=== PATIENT | female | born 1985 | race African-American/Black ===

== ENCOUNTER 2018-06-23 14:31 | Emergency (ER) | payer OTHER ==
[2018-06-23 15:06] VITALS: BMI 35.5
--- NOTE | 2018-06-23 15:33 | PDOC ---
History of Present Illness - General Chief Complaint: Pain Stated Complaint: Shortness of Breath - History of Present Illness Initial Comments: Lacei Stock is a 32yo woman with a history of complex migraine and recent gastric sleeve who presents with an episode of syncope this afternoon and now tachycardia and tachypnea. Ms Stock states that since her gastric surgery, she has been vomiting nearly every day after trying to eat. Today, she was vomiting when she states that she passed out. She fell backwards and hit the back of her head. When she woke, she says that she had chest pain and felt short of breath. She has never had anything similar happen in the past. She has no history of heart disease, and there is no family history of heart problems at a young age. Per her mother, present at bedside, Ms Stock has been spending the past month laying on the couch for the majority of the day, though her mother does make her get up to walk once per day. Currently, she is complaining of diffuse chest/sternal, abdominal, head, and BLE pain along with SOB and racing heart. She reports a fever to 101F a few days ago along with a cough productive of white sputum. Past History - Past Medical History Allergies/Adverse Reactions: Allergies Allergy/AdvReac Type Severity Reaction Status Date / Time No Known Allergies Allergy Verified 06/23/18 15:03 Home Medications: Ambulatory Orders NK [No Known Home Medication] 06/23/18 COPD: No - Suicide/Smoking/Psychosocial Hx Smoking History: Never smoked Have you smoked in the past 12 months: No Information on smoking cessation initiated: No Hx Alcohol Use: No Drug/Substance Use Hx: No Review of Systems - Review of Systems Comments:: General: No fevers, no chills, no malaise HEENT: No changes in vision, no changes in hearing, no congestion, no sore throat. +hit head CV: +chest pain, +racing heart, no LE edema Pulm: +SOB, no cough, no wheezing GI: +frequent nausea/vomiting. +recent gastric sleeve. No change in bowel habits , no melena : No frequency, no urgency, no dysuria Musc: No back pain, no joint swelling, no recent injury Skin: No rash, no lesions, no erythema Endo: No excessive thirst, no heat/cold intolerance Heme: No unusual bruising or bleeding, no swollen glands Neuro: No syncope, no numbness/tingling, no focal weakness Vasc: No claudication Psych: No recent change in mood, no SI or HI *Physical Exam - Vital Signs Last Vital Signs Temp Pulse Resp BP Pulse Ox 98.1 F 89 26 H 152/89 97 06/23/18 15:03 06/23/18 15:03 06/23/18 15:03 06/23/18 15:03 06/23/18 15:03 - Physical Exam Comments: General: Moderate distress HEENT: PERRL, EOMI, dry lips. Normal neck ROM. Posterior head TTP Cards: Tachycardic, regular. Sternal TTP Pulm: Tachypnic. Clear bilaterally Abd: Soft, diffusely TTP Ext: Atraumatic. No LE edema. ROM intact. No calf tenderness Vasc: Extremities WWP Skin: Pale, no rashes or lesions Neuro: A&Ox3, CN grossly intact, normal speech, motor/sensory grossly intact and symmetric Psych: Anxious Moderate Sedation - Procedure Monitoring Vital Signs: Procedure Monitoring Vital Signs Temperature 98.1 F 06/23/18 15:03 Pulse Rate 89 06/23/18 15:03 Respiratory Rate 26 H 06/23/18 15:03 Blood Pressure 152/89 06/23/18 15:03 O2 Sat by Pulse Oximetry (%) 97 06/23/18 15:03 ED Treatment Course - LABORATORY CBC & Chemistry Diagram: 06/23/18 16:00 06/23/18 16:00 Medical Decision Making - Medical Decision Making 06/23/18 15:44 Lacie Sotck is a 32yo woman with a PMH of complex migraine, recent gastric sleeve 1mo ago w/ frequent nausea and vomiting who presents with an episode of syncope at home today, now with tachycardia to 150 and tachypnea in the 30's. - Ddx could be PE, anemia, hyperthyroid, dehydration, sepsis (though no known fever), sympathomimetic use, electrolyte abnormalities, pain, anxiety - CBC, CMP, mag, phos, trop, TSH, EKG, CXR, urine preg, lactate, blood cultures - CT head given fall - Pt's mother reports that she has been getting up only once per day for the past month. Concerning for PE. CTA to be completed after labs result - 1L LR, famotidine ordered 06/23/18 18:37 - Labs reviewed. Trop 0.8, lactate 5.7. - CT head completed. No bleed - 4th L of LR ordered - Now hypotensive to 80/50 - Bedside echo completed by Dr Calvert. Shows significant right heart strain - Spoke to telephone clerk guard driver, will follow while in hospital 06/23/18 19:03 - Spoke to Dr Rudd. Will be accepted to Dr Stephens's service - Dr Calvert spoke to Dr Guzman regarding ICU admission and possible thrombectomy. Will call with update after completing CTA - Repeat chemistry and lactate sent. Will take to CT when labs completed if Cr is decreased. Pt signed out to Dr Wadsworth for remainder of hospital care. Discussed with Dr Calvert. Camila Tuttle PGY1 *DC/Admit/Observation/Transfer Diagnosis at time of Disposition: Acute pulmonary embolism, Elevated troponin I level - Referrals - Patient Instructions - Post Discharge Activity
[2018-06-23] MEDS ORDERED: FAMOTIDINE 20 MG/50 ML IVPB 20 MG/50 ML MG IVPB ONE ×2 (15:46→16:20)
[2018-06-23] MEDS ORDERED: LACTATED RINGERS SOLUTION 1000 ML INFUS.BAG IV ONE ×2 (15:47→17:39)
[2018-06-23 16:30] LABS: VENOUS PC02 45.9 mmHg (41-51); VENOUS PH 7.32 (7.31-7.41); VENOUS PO2 18.5 mmHg (30-40)
[2018-06-23 16:34] LABS: BASO % 0.5 % (0-2.0); EOS % 0.8 % (0-4.5); HEMATOCRIT 45.2 % (32.4-45.2); HEMOGLOBIN 15.4 GM/dL (10.7-15.3); LYMPH % 27.6 % (8-40); MCH 31.1 pg (25.7-33.7); MCHC 34.1 g/dl (32.0-36.0); MEAN CELL VOLUME 91.3 fl (80-96); MEAN PLT VOLUME 9.6 fl (7.5-11.1); MONO % 8.7 % (3.8-10.2); NEUT % 62.4 % (42.8-82.8); PLATELET COUNT 144 K/MM3 (134-434); RBC 4.95 M/mm3 (3.60-5.2); RDW 14.5 % (11.6-15.6); WHITE BLOOD COUNT 9.3 K/mm3 (4.0-10.0)
[2018-06-23 16:49] LABS: INR 1.44 (0.83-1.09)
[2018-06-23 16:51] LABS: ACTIVATED PTT 31.6 SECONDS (25.2-36.5)
[2018-06-23] MEDS ORDERED: ACETAMINOPHEN 1000 MG/100 ML VIAL (NON FORMULARY) IVPB ONE (17:18)
--- NOTE | 2018-06-23 17:19 | PDOC ---
Attending Attestation - Resident Resident Name: Camila Tuttle - ED Attending Attestation I have performed the following: I have examined & evaluated the patient, The case was reviewed & discussed with the resident, I agree w/resident's findings & plan, Exceptions are as noted - HPI HPI: 06/23/18 17:15 32-year-old female with history of morbid obesity, status post gastric sleeve 1 month prior presents with severe substernal chest discomfort, pleuritic in nature, associated with nausea and multiple episodes of nonbloody nonbilious vomiting for the past several weeks. Patient also reports of a posterior occipital headache which developed after she fell and struck her head. Patient denies neck or abdominal pain. Patient also reports fever of 102 days previously associated with purulent cough. - Physicial Exam PE: 06/23/18 17:16 Patient is awake and alert, obese, writhing in pain, tachycardic Normocephalic and atraumatic PERRLA, EOMI Conjunctiva are pale CTA + Reproducible left parasternal tenderness to palpation RRR, tachycardic Abdomen soft, nontender nondistended No lower extremity edema - Medical Decision Making 06/23/18 17:17 Patient is a 32-year-old female status post gastric sleeve for morbid obesity who presents with pleuritic chest pain, sinus tachycardia with diffuse ST segment depressions and T wave inversions in inferior and lateral leads. Differential diagnosis includes severe dehydration versus PE versus thyrotoxicosis versus sepsis versus severe anemia versus combination of factors. We'll obtain CBC/CMP/cardiac profile/TSH/ we'll obtain chest x-ray. Will consider chest CT with IV contrast to rule out PE. Will obtain CT of head prior to administration of contrast to rule out intracranial pathology. Will aggressively hydrate. We'll administer antiemetics, H2 blockers and pain meds. Will reassess.
[2018-06-23 17:25] LABS: CO2 21 mmol/L (21-32); CREATININE 1.6 mg/dL (0.55-1.3)
[2018-06-23 17:26] LABS: ALBUMIN 3.5 g/dl (3.4-5.0)
[2018-06-23 17:33] LABS: ALK PHOS 103 U/L (45-117); ANION GAP 15 MMOL/L (8-16); BILIRUBIN,TOTAL 0.6 mg/dL (0.2-1); BLOOD UREA NITROGEN 11 mg/dL (7-18); CALCIUM 9.1 mg/dL (8.5-10.1); CHLORIDE 100 mmol/L (98-107); GLUCOSE,RANDOM 182 mg/dL (74-106); MAGNESIUM 1.9 mg/dL (1.8-2.4); PHOSPHOROUS 3.7 mg/dL (2.5-4.9); POTASSIUM 3.3 mmol/L (3.5-5.1); SGOT/AST 42 U/L (15-37); SGPT/ALT 40 U/L (13-61); SODIUM 136 mmol/L (136-145); TOT PROT 8.8 g/dl (6.4-8.2)
[2018-06-23] MEDS ORDERED: SODIUM CHLORIDE 0.9% 1000 ML INFUS.BAG IV ONE ×2 (17:58→19:22)
[2018-06-23] MEDS ORDERED: HEPARIN NA (PORCINE) 5,000 UNITS/ML 1ML VIAL IVPUSH ONE (17:59)
--- NOTE | 2018-06-23 17:59 | PDOC ---
*Physical Exam - Vital Signs Last Vital Signs Temp Pulse Resp BP Pulse Ox 98.9 F 141 H 18 88/55 L 99 06/23/18 15:42 06/23/18 18:39 06/23/18 18:39 06/23/18 18:39 06/23/18 18:39 <Aníbal Pattno - Last Filed: 06/23/18 20:35> - Vital Signs Last Vital Signs Temp Pulse Resp BP Pulse Ox 98.1 F 89 26 H 152/89 97 06/23/18 15:03 06/23/18 15:03 06/23/18 15:03 06/23/18 15:03 06/23/18 15:03 - Physical Exam Comments: 06/23/18 18:44 gen: aaox3, tachypnic, tachycardic heart: +s1s2 tachy lungs: cta b/l abd: soft, ttp over incision, obese ext: no c/c/e <Jaycee Calvert - Last Filed: 06/23/18 22:09> ED Treatment Course - LABORATORY CBC & Chemistry Diagram: 06/23/18 16:00 06/23/18 18:51 - ADDITIONAL ORDERS Additional order review: Laboratory Results 06/23/18 06/23/18 06/23/18 16:00 16:00 16:00 PT with INR INR PTT (Actin FS) VBG pH POC VBG pCO2 POC VBG pO2 VBG HCO3 VBG O2 Sat (Marta) VBG Base Excess Sodium Potassium Chloride Carbon Dioxide Anion Gap BUN Creatinine Creat Clearance w eGFR Random Glucose Lactic Acid 5.7 H* Calcium Phosphorus Magnesium Total Bilirubin AST ALT Alkaline Phosphatase Troponin I Total Protein Albumin TSH Serum , Qual Negative Blood Type B NEGATIVE Antibody Screen Negative 06/23/18 06/23/18 06/23/18 16:00 16:00 16:00 PT with INR 17.00 H INR 1.44 H PTT (Actin FS) 31.6 VBG pH 7.32 POC VBG pCO2 45.9 POC VBG pO2 18.5 L VBG HCO3 22.8 L VBG O2 Sat (Marta) 17.0 L VBG Base Excess -3.1 L Sodium 136 Potassium 3.3 L Chloride 100 Carbon Dioxide 21 Anion Gap 15 BUN 11 Creatinine 1.6 H Creat Clearance w eGFR 37.60 Random Glucose 182 H Lactic Acid Calcium 9.1 Phosphorus 3.7 Magnesium 1.9 Total Bilirubin 0.6 AST 42 H ALT 40 Alkaline Phosphatase 103 Troponin I 0.81 H* Total Protein 8.8 H Albumin 3.5 TSH 1.29 Serum , Qual Blood Type Antibody Screen 06/23/18 16:00 RBC 4.95 MCV 91.3 MCHC 34.1 RDW 14.5 MPV 9.6 Neutrophils % 62.4 Lymphocytes % 27.6 Monocytes % 8.7 Eosinophils % 0.8 Basophils % 0.5 - Medications Given in the ED: ED Medications Discontinued Medications Generic Name Dose Route Start Last Admin Trade Name Freq PRN Reason Stop Dose Admin Acetaminophen 1,000 mg 06/23/18 17:18 06/23/18 17:56 Ofirmev Injection - IVPB 06/23/18 17:19 1,000 mg ONCE ONE Administration Heparin Sodium (Porcine) 8,000 unit 06/23/18 17:59 06/23/18 18:54 Heparin - 80 unit/kg (8000 unit) 06/23/18 18:00 8,000 unit IVPUSH Administration ONCE ONE Hydromorphone HCl 0.5 mg 06/23/18 20:27 06/23/18 20:31 Dilaudid Injection - IVPUSH 06/23/18 20:28 0.5 mg ONCE ONE Administration Famotidine/Sodium Chloride 20 mg in 50 mls @ 100 mls/hr 06/23/18 15:46 16:13 Pepcid 20 Mg Premixed Ivpb - IVPB 06/23/18 16:15 100 mls/hr ONCE ONE Administration Piperacillin Sod/Tazobactam 100 mls @ 200 mls/hr 06/23/18 19:27 06/23/18 20: 20 Sod 4.5 gm/ Dextrose IVPB 06/23/18 19:56 200 mls/hr ONCE ONE Administration Protocol Lactated Ringer's 1,000 ml 06/23/18 15:47 06/23/18 16:13 Lactated Ringers Solution IV 06/23/18 15:48 1,000 ml NOW ONE Administration Lactated Ringer's 2,000 ml 06/23/18 17:39 06/23/18 17:55 Lactated Ringers Solution IV 06/23/18 17:40 2,000 ml NOW ONE Administration Sodium Chloride 1,000 ml 06/23/18 17:58 06/23/18 18:38 Normal Saline - IV 06/23/18 17:59 1,000 ml ONCE ONE Administration Sodium Chloride 1,000 ml 06/23/18 19:22 06/23/18 19:37 Normal Saline - IV 06/23/18 19:23 1,000 ml ONCE ONE Administration Vancomycin HCl 1,000 mg 06/23/18 19:27 06/23/18 20:20 Vancomycin (Pre-Docked) IVPB 06/23/18 19:28 1,000 mg ONCE ONE Administration Protocol <Aníbal Patton - Last Filed: 06/23/18 20:35> - LABORATORY CBC & Chemistry Diagram: 06/23/18 16:00 06/23/18 18:51 - ADDITIONAL ORDERS Additional order review: Laboratory Results 06/23/18 06/23/18 06/23/18 16:00 16:00 16:00 PT with INR INR PTT (Actin FS) VBG pH POC VBG pCO2 POC VBG pO2 VBG HCO3 VBG O2 Sat (Marta) VBG Base Excess Sodium 136 Potassium 3.3 L Chloride 100 Carbon Dioxide 21 Anion Gap 15 BUN 11 Creatinine 1.6 H Creat Clearance w eGFR 37.60 Random Glucose 182 H Lactic Acid 5.7 H* Calcium 9.1 Phosphorus 3.7 Magnesium 1.9 Total Bilirubin 0.6 AST 42 H ALT 40 Alkaline Phosphatase 103 Troponin I 0.81 H* Total Protein 8.8 H Albumin 3.5 TSH 1.29 Serum , Qual Negative 06/23/18 06/23/18 16:00 16:00 PT with INR 17.00 H INR 1.44 H PTT (Actin FS) 31.6 VBG pH 7.32 POC VBG pCO2 45.9 POC VBG pO2 18.5 L VBG HCO3 22.8 L VBG O2 Sat (Marta) 17.0 L VBG Base Excess -3.1 L Sodium Potassium Chloride Carbon Dioxide Anion Gap BUN Creatinine Creat Clearance w eGFR Random Glucose Lactic Acid Calcium Phosphorus Magnesium Total Bilirubin AST ALT Alkaline Phosphatase Troponin I Total Protein Albumin TSH Serum , Qual 06/23/18 16:00 RBC 4.95 MCV 91.3 MCHC 34.1 RDW 14.5 MPV 9.6 Neutrophils % 62.4 Lymphocytes % 27.6 Monocytes % 8.7 Eosinophils % 0.8 Basophils % 0.5 - Medications Given in the ED: ED Medications Discontinued Medications Generic Name Dose Route Start Last Admin Trade Name Norman PRN Reason Stop Dose Admin Acetaminophen 1,000 mg 06/23/18 17:18 06/23/18 17:56 Ofirmev Injection - IVPB 06/23/18 17:19 1,000 mg ONCE ONE Administration Famotidine/Sodium Chloride 20 mg in 50 mls @ 100 mls/hr 06/23/18 15:46 16:13 Pepcid 20 Mg Premixed Ivpb - IVPB 06/23/18 16:15 100 mls/hr ONCE ONE Administration Lactated Ringer's 1,000 ml 06/23/18 15:47 06/23/18 16:13 Lactated Ringers Solution IV 06/23/18 15:48 1,000 ml NOW ONE Administration Lactated Ringer's 2,000 ml 06/23/18 17:39 06/23/18 17:55 Lactated Ringers Solution IV 06/23/18 17:40 2,000 ml NOW ONE Administration <Jaycee Calvert - Last Filed: 06/23/18 22:09> Medical Decision Making - Critical Care Time Total Critical Care Time (minutes): 60 Critical Care Statement: The care of this patient involved high complexity decision making to prevent further life threatening deterioration of the patient 's condition and/or to evaluate & treat vital organ system(s) failure or risk of failure. - Medical Decision Making 06/23/18 18:45 Pt signed out from the prior attneding pending head ct, repeat labs, and concern for acute pe pt returns from CT- head ct negative pt hypotensive upon return bedside echo shows acute rv strain pt tachy and tahcypnic concern for acute pe heparin ordered bedside ultrasound of legs ordered case discussed with Dr. Ma from cards and Dr. Guzman from pulm/cc- pt accepted to ICU, agrees with heparin needs cta and ultrasound of legs case discussed [facility] ultrasound who will perform bedside ultrasound pt goes to [facility] and covered by [facility] case discussed with the ICU team ivf hydration 2 more liters running trop elevated R heart strain pattern on the ekg 06/23/18 21:15 pt has consented to iv contrast ct pt with increasing lactate slightly improved cr ivf hydration running central line placed for pressors 06/23/18 21:47 b/l pe on ct r heart strain on ct discussed with Dr. Franco who states tpa is not an option at this time because of proximity to surgery recommends ct surgery eval for thrombectomy call placed to [facility] for poss transfer for ct surgery thrombectomy 06/23/18 22:[address] surgery [address] Lepe at [facility] who accepts pt in transfer to the OR for thrombectomy. Pt updated consent and transfer paperwork completed pending EMS pickup for transfer <Jaycee Calvert - Last Filed: 06/23/18 22:09> *DC/Admit/Observation/Transfer <Aníbal Patton - Last Filed: 06/23/18 20:35> - Discharge Dispostion Decision to Admit order: No - Transfer to Acute Care Facility Receiving Facility: [facility]. Accepting Physician:: Dr. Lepe <Jaycee Calvert - Last Filed: 06/23/18 22:09> Diagnosis at time of Disposition: Acute pulmonary embolism, Elevated troponin I level - Discharge Dispostion Disposition: TRANSFER ACUTE CARE/OTHER HOSP Condition at time of disposition: Critical Procedure Note Procedure: Central line put in place. Consent given by Dr. Alvino Soriano Place in Right femoral groin Line successfully place on first attempt Seldinger Technique used. Clean bandages placed on entry site. <Aníbal Patton - Last Filed: 06/23/18 20:35>
[2018-06-23] MEDS ORDERED: HEPARIN NA (PORCINE) 5,000 UNITS/ML 1ML VIAL IVPUSH PRN ×2 (18:01)
[2018-06-23] MEDS ORDERED: HEPARIN - 25,000 UNIT in SODIUM CHLORIDE 495 ML IV SCH (18:15)
[2018-06-23] MEDS ORDERED: HEPARIN NA (PORCINE) 5,000 UNITS/ML 1ML VIAL ONE (18:53)
[2018-06-23] MEDS ORDERED: HEPARIN INFUSION - 25,000 UNITS/500 ML INFUS.BAG IVPB ONE (18:53)
[2018-06-23] MEDS ORDERED: PIPERACILLIN/TAZOB 4.5 GM 4.5 GM in DEXTROSE 5%-WATER 100 ML IVPB ONE (19:27)
[2018-06-23] MEDS ORDERED: VANCOMYCIN 1 GM in D5W (PRE-DOCKED) 1,000 MG/250 ML IVPB ONE (19:27)
[2018-06-23] MEDS ORDERED: PIPERACILLIN/TAZOB 4.5 GM 4.5 GM/100 ML BAG IVPB ONE (19:31)
[2018-06-23 19:32] LABS: ALBUMIN 2.6 g/dl (3.4-5.0); ALK PHOS 79 U/L (45-117); ANION GAP 15 MMOL/L (8-16); BILIRUBIN,TOTAL 0.7 mg/dL (0.2-1); BLOOD UREA NITROGEN 11 mg/dL (7-18); CALCIUM 8.3 mg/dL (8.5-10.1); CHLORIDE 103 mmol/L (98-107); CO2 22 mmol/L (21-32); CREATININE 1.5 mg/dL (0.55-1.3); GLUCOSE,RANDOM 184 mg/dL (74-106); POTASSIUM 3.2 mmol/L (3.5-5.1); SGOT/AST 42 U/L (15-37); SGPT/ALT 32 U/L (13-61); SODIUM 140 mmol/L (136-145); TOT PROT 6.7 g/dl (6.4-8.2)
[2018-06-23] MEDS ORDERED: VANCOMYCIN 1 GRAM (PRE-DOCKED) 1,000 MG/250 ML BAG IVPB ONE (19:32)
[2018-06-23] MEDS ORDERED: HYDROmorphone HCl 2 MG/ML VIAL ONE (19:54)
--- NOTE | 2018-06-23 19:59 | PDOC ---
*Physical Exam - Vital Signs Last Vital Signs Temp Pulse Resp BP Pulse Ox 98.9 F 141 H 18 88/55 L 99 06/23/18 15:42 06/23/18 18:39 06/23/18 18:39 06/23/18 18:39 06/23/18 18:39 ED Treatment Course - LABORATORY CBC & Chemistry Diagram: 06/23/18 16:00 06/23/18 18:51 - ADDITIONAL ORDERS Additional order review: Laboratory Results 06/23/18 06/23/18 06/23/18 16:00 16:00 16:00 PT with INR INR PTT (Actin FS) VBG pH POC VBG pCO2 POC VBG pO2 VBG HCO3 VBG O2 Sat (Marta) VBG Base Excess Sodium Potassium Chloride Carbon Dioxide Anion Gap BUN Creatinine Creat Clearance w eGFR Random Glucose Lactic Acid 5.7 H* Calcium Phosphorus Magnesium Total Bilirubin AST ALT Alkaline Phosphatase Troponin I Total Protein Albumin TSH Serum , Qual Negative Blood Type B NEGATIVE Antibody Screen Negative 06/23/18 06/23/18 06/23/18 16:00 16:00 16:00 PT with INR 17.00 H INR 1.44 H PTT (Actin FS) 31.6 VBG pH 7.32 POC VBG pCO2 45.9 POC VBG pO2 18.5 L VBG HCO3 22.8 L VBG O2 Sat (Marta) 17.0 L VBG Base Excess -3.1 L Sodium 136 Potassium 3.3 L Chloride 100 Carbon Dioxide 21 Anion Gap 15 BUN 11 Creatinine 1.6 H Creat Clearance w eGFR 37.60 Random Glucose 182 H Lactic Acid Calcium 9.1 Phosphorus 3.7 Magnesium 1.9 Total Bilirubin 0.6 AST 42 H ALT 40 Alkaline Phosphatase 103 Troponin I 0.81 H* Total Protein 8.8 H Albumin 3.5 TSH 1.29 Serum , Qual Blood Type Antibody Screen 06/23/18 16:00 RBC 4.95 MCV 91.3 MCHC 34.1 RDW 14.5 MPV 9.6 Neutrophils % 62.4 Lymphocytes % 27.6 Monocytes % 8.7 Eosinophils % 0.8 Basophils % 0.5 - Medications Given in the ED: ED Medications Discontinued Medications Generic Name Dose Route Start Last Admin Trade Name Freq PRN Reason Stop Dose Admin Acetaminophen 1,000 mg 06/23/18 17:18 06/23/18 17:56 Ofirmev Injection - IVPB 06/23/18 17:19 1,000 mg ONCE ONE Administration Heparin Sodium (Porcine) 8,000 unit 06/23/18 17:59 06/23/18 18:54 Heparin - 80 unit/kg (8000 unit) 06/23/18 18:00 8,000 unit IVPUSH Administration ONCE ONE Famotidine/Sodium Chloride 20 mg in 50 mls @ 100 mls/hr 06/23/18 15:46 16:13 Pepcid 20 Mg Premixed Ivpb - IVPB 06/23/18 16:15 100 mls/hr ONCE ONE Administration Lactated Ringer's 1,000 ml 06/23/18 15:47 06/23/18 16:13 Lactated Ringers Solution IV 06/23/18 15:48 1,000 ml NOW ONE Administration Lactated Ringer's 2,000 ml 06/23/18 17:39 06/23/18 17:55 Lactated Ringers Solution IV 06/23/18 17:40 2,000 ml NOW ONE Administration Sodium Chloride 1,000 ml 06/23/18 17:58 06/23/18 18:38 Normal Saline - IV 06/23/18 17:59 1,000 ml ONCE ONE Administration Sodium Chloride 1,000 ml 06/23/18 19:22 06/23/18 19:37 Normal Saline - IV 06/23/18 19:23 1,000 ml ONCE ONE Administration Medical Decision Making - Medical Decision Making Pt consented for CVC and CT w/ IV contrast after explaining the risks and benefits of the study including the telling the patient that her creatinine is elevated 06/23/18 19:59 Pt found to have b/l PE Transfer initiated to [facility] for thombectomy v catheter directed treatment 06/23/18 20:40 Transfer accepted Consent obtained Dispo: Transfer *DC/Admit/Observation/Transfer Diagnosis at time of Disposition: Elevated troponin I level Acute pulmonary embolism Qualifiers: Pulmonary embolism type: unspecified Acute cor pulmonale presence: without acute cor pulmonale Qualified Code(s): I26.99 - Other pulmonary embolism without acute cor pulmonale - Discharge Dispostion Disposition: TRANSFER ACUTE CARE/OTHER HOSP Condition at time of disposition: Critical - Referrals - Patient Instructions - Post Discharge Activity
[2018-06-23] MEDS ORDERED: HYDROmorphone HCL CARPU-JECT 2 MG/1 ML DISP.SYRIN IVPUSH ONE (20:27)
[2018-06-23] MEDS ORDERED: NOREPINEPHRINE BITARTRATE 4,000 MCG in DEXTROSE 5%-WATER - 496 ML IV SCH (20:30)
--- NOTE | 2018-06-23 20:57 | HP ---
CHIEF COMPLAINT: PCP: HISTORY OF PRESENT ILLNESS: ER course was notable for: Recent Travel: PAST MEDICAL HISTORY: PAST SURGICAL HISTORY: Social History: Smoking: Alcohol: Drugs: Family History: Allergies No Known Allergies Allergy (Verified 06/23/18 15:03) HOME MEDICATIONS: REVIEW OF SYSTEMS CONSTITUTIONAL: Absent: diaphoresis, generalized weakness, malaise, loss of appetite, weight change HEENT: Absent: rhinorrhea, nasal congestion, throat pain, throat swelling, difficulty swallowing, mouth swelling, ear pain, eye pain, visual changes CARDIOVASCULAR: Absent: palpitations, irregular heart rate, peripheral edema RESPIRATORY: Absent: cough, orthopnea, wheezing, stridor, hemoptysis GASTROINTESTINAL: Absent: abdominal pain, abdominal distension, nausea, vomiting, diarrhea, constipation, melena, hematochezia GENITOURINARY: Absent: dysuria, frequency, urgency, hesitancy, hematuria, flank pain, genital pain MUSCULOSKELETAL: Absent: myalgia, arthralgia, joint swelling, back pain, neck pain SKIN: Absent: rash, itching, pallor HEMATOLOGIC/IMMUNOLOGIC: Absent: easy bleeding, easy bruising, lymphadenopathy, frequent infections ENDOCRINE: Absent: unexplained weight gain, unexplained weight loss, heat intolerance, cold intolerance NEUROLOGIC: Absent: focal weakness or paresthesias, unsteady gait, seizure, mental status changes, bladder or bowel incontinence PSYCHIATRIC: Absent: anxiety, depression, suicidal or homicidal ideation, hallucinations. PHYSICAL EXAMINATION Vital Signs - 24 hr 06/23/18 06/23/18 06/23/18 15:03 15:42 18:20 Temperature 98.1 F 98.9 F Pulse Rate 89 Pulse Rate [ 142 H Left Radial] Respiratory 26 H 18 Rate Blood Pressure 152/89 Blood Pressure 80/52 L [Right Arm] O2 Sat by Pulse 97 94 L Oximetry (%) 06/23/18 18:39 Temperature Pulse Rate Pulse Rate [ 141 H Left Radial] Respiratory 18 Rate Blood Pressure Blood Pressure 88/55 L [Right Arm] O2 Sat by Pulse 99 Oximetry (%) GENERAL: Awake, alert, and fully oriented HEAD: Normal with no signs of trauma. EYES: Pupils equal, round and reactive to light, extraocular movements intact, sclera anicteric, conjunctiva clear. No lid lag. EARS, NOSE, THROAT: Ears normal, nares patent, oropharynx clear without exudates. NECK: Normal range of motion, supple without lymphadenopathy, JVD LUNGS: No wheezes, and no crackles. No accessory muscle use. HEART: Regular rate and rhythm, normal S1 and S2 without murmur, rub or gallop. ABDOMEN: Obese, soft, nontender, not distended, no guarding, no rebound, no masses. No hepatomegaly or splenomegaly. GENITOURINARY: MUSCULOSKELETAL: Normal range of motion at all joints. No bony deformities or tenderness. No CVA tenderness. UPPER EXTREMITIES: 2+ pulses, warm, well-perfused. No cyanosis. No clubbing. No peripheral edema. LOWER EXTREMITIES: 2+ pulses, warm, well-perfused. No calf tenderness. No peripheral edema. NEUROLOGICAL: Cranial nerves II-XII intact. Normal speech. Gait not observed. PSYCHIATRIC: Cooperative. Good eye contact. Appropriate mood and affect. SKIN: Warm, dry, normal turgor, no rashes or lesions noted, normal capillary refill. Problem List - Problem (1) Acute pulmonary embolism Code(s): I26.99 - OTHER PULMONARY EMBOLISM WITHOUT ACUTE COR PULMONALE (2) Chest pain Code(s): R07.9 - CHEST PAIN, UNSPECIFIED (3) Dyspnea Code(s): R06.00 - DYSPNEA, UNSPECIFIED (4) Elevated troponin I level Code(s): R74.8 - ABNORMAL LEVELS OF OTHER SERUM ENZYMES Visit type - Emergency Visit Emergency Visit: No - New Patient This patient is new to me today: No - Critical Care Critical Care patient: No
[2018-06-23] MEDS ORDERED: MUPIROCIN 2% TOPICAL OINTMENT FOR DECOLONIZATION NS SCH (22:00)
[2018-06-23] MEDS ORDERED: DEXTROSE 5%-0.45% SALINE 1,000 ML IV SCH (22:00)
[2018-06-23] MEDS ORDERED: CHLORHEXIDINE GLUCONATE 4% CLEANSER FOR DECOLONIZATION TP SCH (22:00)
--- NOTE | 2018-06-23 23:04 | CONSULT ---
Consultation: REQUESTING PROVIDER: CONSULT REQUEST: We have been asked to medically evaluate this patient for ( specify). HISTORY OF PRESENT ILLNESS: REVIEW OF SYSTEMS: CONSTITUTIONAL: Absent: fever, chills, diaphoresis, generalized weakness, malaise, loss of appetite, weight change HEENT: Absent: rhinorrhea, nasal congestion, throat pain, throat swelling, difficulty swallowing, mouth swelling, ear pain, eye pain, visual changes CARDIOVASCULAR: Absent: chest pain, syncope, palpitations, irregular heart rate, lightheadedness , peripheral edema RESPIRATORY: Absent: cough, shortness of breath, dyspnea with exertion, orthopnea, wheezing, stridor, hemoptysis GASTROINTESTINAL: Absent: abdominal pain, abdominal distension, nausea, vomiting, diarrhea, constipation, melena, hematochezia GENITOURINARY: Absent: dysuria, frequency, urgency, hesitancy, hematuria, flank pain, genital pain MUSCULOSKELETAL: Absent: myalgia, arthralgia, joint swelling, back pain, neck pain SKIN: Absent: rash, itching, pallor HEMATOLOGIC/IMMUNOLOGIC: Absent: easy bleeding, easy bruising, lymphadenopathy, frequent infections ENDOCRINE: Absent: unexplained weight gain, unexplained weight loss, heat intolerance, cold intolerance NEUROLOGIC: Absent: headache, focal weakness or paresthesias, dizziness, unsteady gait, seizure, mental status changes, bladder or bowel incontinence PSYCHIATRIC: Absent: anxiety, depression, suicidal or homicidal ideation, hallucinations. PHYSICAL EXAMINATION Vital Signs - 24 hr 06/23/18 06/23/18 06/23/18 15:03 15:42 18:20 Temperature 98.1 F 98.9 F Pulse Rate 89 Pulse Rate [ 142 H Left Radial] Respiratory 26 H 18 Rate Blood Pressure 152/89 Blood Pressure 80/52 L [Right Arm] O2 Sat by Pulse 97 94 L Oximetry (%) 06/23/18 18:39 Temperature Pulse Rate Pulse Rate [ 141 H Left Radial] Respiratory 18 Rate Blood Pressure Blood Pressure 88/55 L [Right Arm] O2 Sat by Pulse 99 Oximetry (%) GENERAL: Awake, alert, and fully oriented, in no acute distress. HEAD: Normal with no signs of trauma. EYES: Pupils equal, round and reactive to light, extraocular movements intact, sclera anicteric, conjunctiva clear. No lid lag. EARS, NOSE, THROAT: Ears normal, nares patent, oropharynx clear without exudates. Moist mucous membranes. NECK: Normal range of motion, supple without lymphadenopathy, JVD, or masses. LUNGS: Breath sounds equal, clear to auscultation bilaterally. No wheezes, and no crackles. No accessory muscle use. HEART: Regular rate and rhythm, normal S1 and S2 without murmur, rub or gallop. ABDOMEN: Soft, nontender, not distended, normoactive bowel sounds, no guarding, no rebound, no masses. No hepatomegaly or splenomegaly. MUSCULOSKELETAL: Normal range of motion at all joints. No bony deformities or tenderness. No CVA tenderness. UPPER EXTREMITIES: 2+ pulses, warm, well-perfused. No cyanosis. No clubbing. Cap refill <2 seconds. No peripheral edema. LOWER EXTREMITIES: 2+ pulses, warm, well-perfused. No calf tenderness. No peripheral edema. NEUROLOGICAL: Cranial nerves II-XII intact. Normal speech. Normal gait. PSYCHIATRIC: Cooperative. Good eye contact. Appropriate mood and affect. SKIN: Warm, dry, normal turgor, no rashes or lesions noted. Laboratory Results - last 24 hr 06/23/18 06/23/18 06/23/18 16:00 16:00 16:00 WBC 9.3 RBC 4.95 Hgb 15.4 H Hct 45.2 MCV 91.3 MCH 31.1 MCHC 34.1 RDW 14.5 Plt Count 144 MPV 9.6 Absolute Neuts (auto) 5.8 Neutrophils % 62.4 Lymphocytes % 27.6 Monocytes % 8.7 Eosinophils % 0.8 Basophils % 0.5 Nucleated RBC % 0 PT with INR 17.00 H INR 1.44 H PTT (Actin FS) 31.6 VBG pH 7.32 POC VBG pCO2 45.9 POC VBG pO2 18.5 L VBG HCO3 22.8 L VBG O2 Sat (Marta) 17.0 L VBG Base Excess -3.1 L Sodium Potassium Chloride Carbon Dioxide Anion Gap BUN Creatinine Creat Clearance w eGFR Random Glucose Lactic Acid Calcium Phosphorus Magnesium Total Bilirubin AST ALT Alkaline Phosphatase Troponin I Total Protein Albumin TSH Serum , Qual Blood Type Antibody Screen 06/23/18 06/23/18 06/23/18 16:00 16:00 16:00 WBC RBC Hgb Hct MCV MCH MCHC RDW Plt Count MPV Absolute Neuts (auto) Neutrophils % Lymphocytes % Monocytes % Eosinophils % Basophils % Nucleated RBC % PT with INR INR PTT (Actin FS) VBG pH POC VBG pCO2 POC VBG pO2 VBG HCO3 VBG O2 Sat (Marta) VBG Base Excess Sodium 136 Potassium 3.3 L Chloride 100 Carbon Dioxide 21 Anion Gap 15 BUN 11 Creatinine 1.6 H Creat Clearance w eGFR 37.60 Random Glucose 182 H Lactic Acid Calcium 9.1 Phosphorus 3.7 Magnesium 1.9 Total Bilirubin 0.6 AST 42 H ALT 40 Alkaline Phosphatase 103 Troponin I 0.81 H* Total Protein 8.8 H Albumin 3.5 TSH 1.29 Serum , Qual Negative Blood Type B NEGATIVE Antibody Screen Negative 06/23/18 06/23/18 06/23/18 16:00 18:51 18:51 WBC RBC Hgb Hct MCV MCH MCHC RDW Plt Count MPV Absolute Neuts (auto) Neutrophils % Lymphocytes % Monocytes % Eosinophils % Basophils % Nucleated RBC % PT with INR INR PTT (Actin FS) VBG pH POC VBG pCO2 POC VBG pO2 VBG HCO3 VBG O2 Sat (Marta) VBG Base Excess Sodium 140 Potassium 3.2 L Chloride 103 Carbon Dioxide 22 Anion Gap 15 BUN 11 Creatinine 1.5 H Creat Clearance w eGFR 40.50 Random Glucose 184 H Lactic Acid 5.7 H* 8.9 H* Calcium 8.3 L Phosphorus Magnesium Total Bilirubin 0.7 AST 42 H ALT 32 Alkaline Phosphatase 79 Troponin I Total Protein 6.7 Albumin 2.6 L TSH Serum , Qual Blood Type Antibody Screen Active Medications Generic Name Dose Route Start Last Admin Trade Name Freq PRN Reason Stop Dose Admin Chlorhexidine Gluconate 1 applic 06/23/18 22:00 Hibiclens For Decolonization - TP HS TANVIR Heparin Sodium (Porcine) 1,000 unit 06/23/18 18:01 Heparin - IVPUSH PRN PRN Heparin Heparin Sodium (Porcine) 5,000 unit 06/23/18 18:01 Heparin - IVPUSH PRN PRN Heparin Heparin Sodium (Porcine) 25, 500 mls @ 20 mls/hr 06/23/18 18:15 06/23/18 18: 54 000 unit/ Sodium Chloride IV 1,000 unit/hr TITR TANVIR 20 mls/hr Administration Protocol 1,000 UNIT/HR Norepinephrine Bitartrate 4, 500 mls @ 37.5 mls/hr 06/23/18 20:30 06/23/18 21 :10 000 mcg/ Dextrose IV 5 mcg/min TITR TANVIR 37.5 mls/hr Administration Protocol 5 MCG/MIN Dextrose/Sodium Chloride 1,000 mls @ 100 mls/hr 06/23/18 22:00 D5-1/2ns - IV ASDIR TANVIR Mupirocin 1 applic 06/23/18 22:00 Bactroban Ointment (For Decolonization) - NS 06/28/18 21:59 BID TANVIR ASSESSMENT/PLAN: Dispo: We will continue to follow the patient. Thank you for this consultative opportunity.
[2018-06-23 23:22] VITALS: BP 109/68; PULSE 132; TEMP 98.6
[2018-06-23 23:51] LABS: URINE APPEARANCE CLOUDY; URINE BILIRUBIN NEGATIVE (<2.0 mg/dL); URINE COLOR YELLOW; URINE GLUCOSE (UA) 100 (NEGATIVE); URINE KETONE NEGATIVE (NEGATIVE)
[2018-06-23 23:52] LABS: URINE LEUK ESTERASE NEGATIVE (NEGATIVE); URINE NITRITE POSITIVE (NEGATIVE); URINE PROTEIN 3+ (NEGATIVE)
[2018-06-23 23:53] LABS: EPI CELLS 13.7 /HPF (FEW); URINE RBC 10.1 /hpf (0-3); URINE WBC 99.2 /hpf (3-5)
[2018-06-23 23:54] LABS: URINE BACTERIA 46.7 /hpf (NEGATIVE)
--- NOTE | 2018-06-24 06:38 | CONSULT ---
Consultation: REQUESTING PROVIDER: Dr. Jaycee Calvert CONSULT REQUEST: We have been asked to medically evaluate this patient for ( Admission). 2 CHIEF COMPLAINT: Syncope, Chest Pain, SOB PCP: Surgeon: Dr. Manzano ([facility]) HISTORY OF PRESENT ILLNESS: This is a 32 y/o woman with a PMHx of Complex Migraines, s/p Gastric Sleeve 05/27 ([facility]). Who presents to the ED with syncope x pm, intermittent midsternal chest pain and SOB x 2 weeks worse today, vomiting- non bloody non bilious several days. Patient reports feeling dizzy then woke up on the floor. Patient describes the chest pain as heaviness " punch to the chest". Patient reports having increased SOB on exertion. Patient also reports having subjective fever 101.0 and chills x2-3 days. Last BM today brown soft. Patient denies cough, palpitations, AP, diarrhea, constipation, dysuria. Patient denies recent travel or sick contacts. LMP 05/28/18 ER course was notable for: (1) CTA- massive PE (2) Lactic Acid 5.9~8.9 (3) Troponin I- 0.81 Recent Travel: None PAST MEDICAL HISTORY: See HPI PAST SURGICAL HISTORY: See HPI Social History: Smoking: Never Alcohol: Denies Drugs: Denies Family History: Allergies No Known Allergies Allergy (Verified 06/23/18 15:03) HOME MEDICATIONS: REVIEW OF SYSTEMS CONSTITUTIONAL: fever, chills, Absent: diaphoresis, generalized weakness, malaise, loss of appetite, weight change HEENT: Absent: rhinorrhea, nasal congestion, throat pain, throat swelling, difficulty swallowing, mouth swelling, ear pain, eye pain, visual changes CARDIOVASCULAR: chest pain, syncope, lightheadedness, Absent: palpitations, irregular heart rate, peripheral edema RESPIRATORY: shortness of breath, dyspnea with exertion Absent: cough, orthopnea, wheezing, stridor, hemoptysis GASTROINTESTINAL: Absent: abdominal pain, abdominal distension, nausea, vomiting, diarrhea, constipation, melena, hematochezia GENITOURINARY: Absent: dysuria, frequency, urgency, hesitancy, hematuria, flank pain, genital pain MUSCULOSKELETAL: Absent: myalgia, arthralgia, joint swelling, back pain, neck pain SKIN: Absent: rash, itching, pallor HEMATOLOGIC/IMMUNOLOGIC: Absent: easy bleeding, easy bruising, lymphadenopathy, frequent infections ENDOCRINE: Absent: unexplained weight gain, unexplained weight loss, heat intolerance, cold intolerance NEUROLOGIC: headache,dizziness Absent: focal weakness or paresthesias, unsteady gait, seizure, mental status changes, bladder or bowel incontinence PSYCHIATRIC: Absent: anxiety, depression, suicidal or homicidal ideation, hallucinations. PHYSICAL EXAMINATION Vital Signs - 24 hr 06/23/18 06/23/18 06/23/18 15:03 15:42 18:20 Temperature 98.1 F 98.9 F Pulse Rate 89 Pulse Rate [ 142 H Left Radial] Respiratory 26 H 18 Rate Blood Pressure 152/89 Blood Pressure 80/52 L [Right Arm] O2 Sat by Pulse 97 94 L Oximetry (%) 06/23/18 18:39 Temperature Pulse Rate Pulse Rate [ 141 H Left Radial] Respiratory 18 Rate Blood Pressure Blood Pressure 88/55 L [Right Arm] O2 Sat by Pulse 99 Oximetry (%) GENERAL: Awake, alert, and fully oriented, in moderate distress. HEAD: Normal with no signs of trauma. EYES: Pupils equal, round and reactive to light, extraocular movements intact, sclera anicteric, conjunctiva clear. No lid lag. EARS, NOSE, THROAT: Dry mucous membranes. Ears normal, nares patent, oropharynx clear without exudates. NECK: Right sided hematoma Normal range of motion, supple without lymphadenopathy, JVD LUNGS: Breath sounds diminished bilaterally. No wheezes, and no crackles. No accessory muscle use. HEART: Regular rate and rhythm, normal S1 and S2 without murmur, rub or gallop. ABDOMEN: Obese, soft, nontender, not distended, hypoactive bowel sounds, no guarding, no rebound, no masses. No hepatomegaly or splenomegaly. well healed surgical scars to abdomen GENITOURINARY: Daugherty catheter with yellow urine in drainage bag MUSCULOSKELETAL: Normal range of motion at all joints. No bony deformities or tenderness. No CVA tenderness. UPPER EXTREMITIES: 2+ pulses, warm, well-perfused. No cyanosis. No clubbing. No peripheral edema. LOWER EXTREMITIES: 2+ pulses, warm, well-perfused. No calf tenderness. No peripheral edema. Triple Lumen to R- groin NEUROLOGICAL: Cranial nerves II-XII intact. Normal speech. Gait not observed. PSYCHIATRIC: Cooperative. Good eye contact. Appropriate mood and affect. SKIN: Warm, dry, normal turgor, no rashes or lesions noted, normal capillary refill. Laboratory Results - last 24 hr 06/23/18 06/23/18 06/23/18 16:00 16:00 16:00 WBC 9.3 RBC 4.95 Hgb 15.4 H Hct 45.2 MCV 91.3 MCH 31.1 MCHC 34.1 RDW 14.5 Plt Count 144 MPV 9.6 Absolute Neuts (auto) 5.8 Neutrophils % 62.4 Lymphocytes % 27.6 Monocytes % 8.7 Eosinophils % 0.8 Basophils % 0.5 Nucleated RBC % 0 PT with INR 17.00 H INR 1.44 H PTT (Actin FS) 31.6 VBG pH 7.32 POC VBG pCO2 45.9 POC VBG pO2 18.5 L VBG HCO3 22.8 L VBG O2 Sat (Marta) 17.0 L VBG Base Excess -3.1 L Sodium Potassium Chloride Carbon Dioxide Anion Gap BUN Creatinine Creat Clearance w eGFR Random Glucose Lactic Acid Calcium Phosphorus Magnesium Total Bilirubin AST ALT Alkaline Phosphatase Troponin I Total Protein Albumin TSH Serum , Qual Blood Type Antibody Screen 06/23/18 06/23/18 06/23/18 16:00 16:00 16:00 WBC RBC Hgb Hct MCV MCH MCHC RDW Plt Count MPV Absolute Neuts (auto) Neutrophils % Lymphocytes % Monocytes % Eosinophils % Basophils % Nucleated RBC % PT with INR INR PTT (Actin FS) VBG pH POC VBG pCO2 POC VBG pO2 VBG HCO3 VBG O2 Sat (Marta) VBG Base Excess Sodium 136 Potassium 3.3 L Chloride 100 Carbon Dioxide 21 Anion Gap 15 BUN 11 Creatinine 1.6 H Creat Clearance w eGFR 37.60 Random Glucose 182 H Lactic Acid Calcium 9.1 Phosphorus 3.7 Magnesium 1.9 Total Bilirubin 0.6 AST 42 H ALT 40 Alkaline Phosphatase 103 Troponin I 0.81 H* Total Protein 8.8 H Albumin 3.5 TSH 1.29 Serum , Qual Negative Blood Type B NEGATIVE Antibody Screen Negative 06/23/18 06/23/18 06/23/18 16:00 18:51 18:51 WBC RBC Hgb Hct MCV MCH MCHC RDW Plt Count MPV Absolute Neuts (auto) Neutrophils % Lymphocytes % Monocytes % Eosinophils % Basophils % Nucleated RBC % PT with INR INR PTT (Actin FS) VBG pH POC VBG pCO2 POC VBG pO2 VBG HCO3 VBG O2 Sat (Marta) VBG Base Excess Sodium 140 Potassium 3.2 L Chloride 103 Carbon Dioxide 22 Anion Gap 15 BUN 11 Creatinine 1.5 H Creat Clearance w eGFR 40.50 Random Glucose 184 H Lactic Acid 5.7 H* 8.9 H* Calcium 8.3 L Phosphorus Magnesium Total Bilirubin 0.7 AST 42 H ALT 32 Alkaline Phosphatase 79 Troponin I Total Protein 6.7 Albumin 2.6 L TSH Serum , Qual Blood Type Antibody Screen ASSESSMENT/PLAN: This is a 32 y/o woman PMHx of: s/p Gastric Sleeve(05/27/18, Complex Migraine. Admitted to ICU for Acute Pulmonary Embolus, NSTEMI, Lactic Acidosis for further evaluation of their emergent condition. Plan Admit ICU CTA-Massive PE Started on Heparin Protocol Cardiac Monitoring Serial Enzymes elevated x1, will trend, likely secondary to PE vs ACS vs Sepsis Appreciate Cardiology consult Appreciate Operations Research Scientist/ Pulmonolgy consult IV Pressors started Maintain Map > 65 Lactic Acid 5.7 now 8.9 NS bolus x5L given in ED Monitor INOs NPO Continue IVF monitor for HF Vancomycin and Zosyn given in ED Appreciate ID consult Monitor PTTs closely Monitor CBC, BMP Patient would benefit with transfer to Tertiary facility for Thrombectomy secondary to Acute Massive PE Code Status: Full Code Dispo: Requires Inpatient Critical Care Addendum: Patient to be transferred to [facility] for Thrombectomy Arranged by Dr. Jaycee Calvert DO Problem List - Problems (1) Acute pulmonary embolism Code(s): I26.99 - OTHER PULMONARY EMBOLISM WITHOUT ACUTE COR PULMONALE (2) Chest pain Code(s): R07.9 - CHEST PAIN, UNSPECIFIED (3) Dyspnea Code(s): R06.00 - DYSPNEA, UNSPECIFIED (4) Elevated troponin I level Code(s): R74.8 - ABNORMAL LEVELS OF OTHER SERUM ENZYMES Visit type - Emergency Visit Emergency Visit: Yes ED Registration Date: 06/23/18 Care time: The patient presented to the Emergency Department on the above date and was hospitalized for further evaluation of their emergent condition. - New Patient This patient is new to me today: Yes Date on this admission: 06/23/18 - Critical Care Critical Care patient: Yes Total Critical Care Time (in minutes): 40 Critical Care Statement: The care of this patient involved high complexity decision making to prevent further life threatening deterioration of the patient 's condition and/or to evaluate & treat vital organ system(s) failure or risk of failure.
--- NOTE | 2018-06-24 09:09 | DS ---
Physical Examination Vital Signs: Vital Signs Temperature 98.6 F 06/23/18 23:20 Pulse Rate 132 H 06/23/18 23:20 Respiratory Rate 21 H 06/23/18 23:20 Blood Pressure 109/68 06/23/18 23:20 O2 Sat by Pulse Oximetry (%) 99 06/23/18 18:39 Findings/Remarks: LEFT AMA Labs: CBC, BMP 06/23/18 16:00 06/23/18 18:51 Discharge Summary Reason For Visit: ACUTE PULMONARY EMBOLISM Current Active Problems Acute pulmonary embolism (Acute) Chest pain (Acute) Dyspnea (Acute) Elevated troponin I level (Acute) Symptomatic anemia (Acute) Condition: Critical - Instructions Diet, Activity, Other Instructions: follow up with your PCP within the next 1-2 days follow up with [facility] Return to the nearest ED for SOB, Chest Pain or any worsening condition Disposition: AGAINST MEDICAL ADVICE
--- NOTE | 2018-06-24 11:01 | EKG ---
Test Reason : Blood Pressure : / mmHG Vent. Rate : 135 BPM Atrial Rate : 135 BPM P-R Int : 134 ms QRS Dur : 078 ms QT Int : 368 ms P-R-T Axes : 081 086 -08 degrees QTc Int : 552 ms SINUS TACHYCARDIA ABNORMAL ECG WHEN COMPARED WITH ECG OF 23-JUN-2018 14:56, T WAVE INVERSION NO LONGER EVIDENT IN ANTERIOR LEADS Confirmed by KENTON SMITH MD ([id number]) on 06/24/2018 11:01:01 AM Referred By: Confirmed By:KENTON SMITH MD
--- NOTE | 2018-06-24 13:46 | PN ---
Progress Note (short form) - Note Progress Note: consult ordered. but pt left ama. call back if pt returns.
--- NOTE | 2018-06-25 11:08 | EKG ---
Test Reason : Blood Pressure : / mmHG Vent. Rate : 142 BPM Atrial Rate : 142 BPM P-R Int : 070 ms QRS Dur : 080 ms QT Int : 348 ms P-R-T Axes : 060 086 -15 degrees QTc Int : 535 ms POOR DATA QUALITY, INTERPRETATION MAY BE ADVERSELY AFFECTED SINUS TACHYCARDIA WITH SHORT [place] MARKED ST ABNORMALITY, POSSIBLE INFERIOR SUBENDOCARDIAL INJURY ABNORMAL ECG NO PREVIOUS ECGS AVAILABLE Confirmed by JR WHITE, SUBHASH ([id number]) on 06/25/2018 11:08:21 AM Referred By: Confirmed By:SUBHASH NORRIS MD
== END 2018-06-23 23:25 | disposition short-term general hospital (02) ==
LOC: JER 14:31 → JERBED 18:49 → UNDOADMIN 18:49
PROC: 3E0337Z Introduction of Electrolytic and Water Balance Substance into Peripheral Vein, Percutaneous Approach (ICD-10-PCS; principal; 2018-06-23)
PROC: 3E033GC Introduction of Other Therapeutic Substance into Peripheral Vein, Percutaneous Approach (ICD-10-PCS; 2018-06-23)
PROC: 3E033GC Introduction of Other Therapeutic Substance into Peripheral Vein, Percutaneous Approach (ICD-10-PCS; 2018-06-23)
PROC: 3E033NZ Introduction of Analgesics, Hypnotics, Sedatives into Peripheral Vein, Percutaneous Approach (ICD-10-PCS; 2018-06-23)
PROC: 3E033NZ Introduction of Analgesics, Hypnotics, Sedatives into Peripheral Vein, Percutaneous Approach (ICD-10-PCS; 2018-06-23)
PROC: 3E03329 Introduction of Other Anti-infective into Peripheral Vein, Percutaneous Approach (ICD-10-PCS; 2018-06-23)
DX: I26.99 Other pulmonary embolism without acute cor pulmonale (principal); R06.09 Other forms of dyspnea; R74.8 Abnormal levels of other serum enzymes; D64.9 Anemia, unspecified; E66.01 Morbid (severe) obesity due to excess calories; Z68.35 Body mass index [BMI] 35.0-35.9, adult; Z98.84 Bariatric surgery status
CPT/HCPCS: 36415; 70450-TC; 71045-TC-FY; 71275-TC; 74177-TC; 80053; 81003; 82803; 83605; 83735; 84100; 84443; 84484; 84703; 85025; 85610; 85730; 86850; 86900; 86901; 87040; 93005; 93010; 93970-TC; 99285-25; J0131; J1644; J7030